=== PATIENT | female | born 1975 | race Caucasian/White ===

== ENCOUNTER 2016-11-21 09:23 | Emergency (ER) | payer MEDICAID ==
[~2016-11-21] VITALS: Ht 162.6 cm; Wt 54.5 kg
[~2016-11-21 09:23] MED LIST: ASPI81TA50 PO; HYDR12.58 PO; METO-448 PO
[2016-11-21 09:32] VITALS: Ht 162.6 cm; Wt 54.5 kg
[2016-11-21] MEDS ORDERED: IBUPROFEN 600 MG TAB PO ONE (11:30)
[2016-11-21 11:34] LABS: BASOPHIL # 0.1 10^3/ul (0.0-0.1); BASOPHILS % 0.9 % (0.0-2.0); EOSINOPHILS # 0.1 10^3/ul (0.0-0.5); EOSINOPHILS % 1.5 % (0.0-7.0); HEMATOCRIT 44.3 % (37.0-47.0); HEMOGLOBIN 14.9 g/dl (12.0-16.0); LYMPHOCYTES # 2.2 10^3/ul (0.8-2.9); LYMPHOCYTES % 33.3 % (15.0-51.0); MEAN CORPUSCULAR HEMOGLOBIN 27.4 pg (29.0-33.0); MEAN CORPUSCULAR HGB CONC 33.6 g/dl (32.0-37.0); MEAN CORPUSCULAR VOLUME 81.4 fl (82.0-101.0); MEAN PLATELET VOLUME 9.9 fl (7.4-10.4); MONOCYTE # 0.6 10^3/ul (0.3-0.9); MONOCYTES % 8.4 % (0.0-11.0); NEUTROPHILS % 55.7 % (39.0-77.0); PLATELET COUNT 285 10^3/UL (140-415); RED BLOOD COUNT 5.44 10^6/ul (4.20-5.40); RED CELL DISTRIBUTION WIDTH 12.9 % (11.5-14.5); WHITE BLOOD COUNT 6.6 10^3/ul (4.8-10.8)
--- NOTE | 2016-11-21 11:44 | RADRPT ---
PROCEDURE: US Lower extremity Venous. CLINICAL INDICATION: Lower extremity pain and swelling TECHNIQUE: Multiple sonographic images of the left lower extremity deep venous system was obtained utilizing grayscale, color-flow, compressive sonography and doppler imaging with augmentation. The images were reviewed on a PACS workstation. COMPARISON: None. FINDINGS: There is normal compressibility and flow within the left common femoral, superficial femoral and pop liteal veins. Antegrade flow seen in the posterior tibial and peroneal veins. IMPRESSION: No sonographic evidence for deep venous thrombosis. RPTAT: AA .Wolfgang Haji MD, MD Date Time Electronically viewed and signed by .Wolfgang Haji MD, MD on 11/21/2016 11:43 .P/
[2016-11-21 12:05] LABS: CALCIUM 9.2 mg/dl (8.4-10.2); CREATININE 0.51 mg/dl (0.44-1.00); POTASSIUM 3.5 mmol/L (3.5-5.1)
--- NOTE | 2016-11-21 12:08 | RADRPT ---
PROCEDURE: Left knee x-ray CLINICAL INDICATION: Knee pain TECHNIQUE: AP, lateral and oblique views of the left knee were obtained. COMPARISON: None FINDINGS: There is normal mineralization. No acute fracture or dislocation is seen. There are no significant degenerative changes. There is a small joint effusion. There is no significant soft tissue swelling. RPTAT: AA IMPRESSION: Small joint effusion. .Tres Saldivar MD, MD Date Time Electronically viewed and signed by .Tres Saldivar MD, on 11/21/2016 12:08 .S/
[2016-11-21] MEDS ORDERED: IBUP-1542 PO (13:12)
--- NOTE | 2016-11-21 14:46 | ERD ---
ER Documentation Chief Complaint Date/Time DATE: 11/21/16 TIME: 14:31 Chief Complaint LEFT KNEE PAIN,SOB STARTED LAST NIGHT.DENIES MED HX HPI 41-year-old female complaining of left knee pain and swelling 2 weeks. Patient stated the pain is worse when she tried to bend her knee. She is able to bear weight. Denies fall or injury. Denies fever or chills. Patient has history of hypertension, but is not currently taking any medication. Denies history of gout. ROS All systems reviewed and are negative except as per history of present illness. Medications Home Meds Active Scripts Ibuprofen* (Motrin*) 600 Mg Tab, 600 MG PO Q6H Y for PAIN AND OR ELEVATED TEMP, #30 TAB Prov:NALLELY MCGUIRE NP 11/21/16 Metoprolol Tartrate* (Lopressor*) 25 Mg Tab, 12.5 MG PO BID for 30 Days, #60 TAB Prov:VANCE OROZCO MD 08/30/15 Reported Medications Hydrochlorothiazide* (Hydrochlorothiazide*) 12.5 Mg Tablet, 12.5 MG PO DAILY, # 30 TAB 08/29/15 Aspirin (Aspir-Low) 81 Mg Tablet.dr, 81 MG PO DAILY 08/29/15 Allergies Allergies: Coded Allergies: No Known Allergy (Unverified , 08/29/15) PMhx/Soc History of Surgery: Yes ( , tubal ligation) Anesthesia Reaction: No Hx Neurological Disorder: No Hx Respiratory Disorders: No Hx Cardiac Disorders: Yes (HTN) Hx Psychiatric Problems: No Hx Miscellaneous Medical Probl: No Hx Alcohol Use: No Hx Substance Use: No Hx Tobacco Use: No Smoking Status: Never smoker Physical Exam Vitals Vital Signs Date Time Temp Pulse Resp B/P Pulse Ox O2 Delivery O2 Flow Rate FiO2 11/21/16 09:32 98.8 86 18 160/83 98 Physical Exam General: Well-developed, well-nourished, conscious and coherent, in no distress. Patient is crying. Skin: Warm and dry without rash, good texture and turgor Head: Normocephalic without evidence of trauma Eyes: Sclera and conjunctivae normal; pupils equal, round, and reactive to light; extraocular movements are intact Chest: Normal AP diameter. Good expansion without retractions. Nontender. Lungs are clear to auscultate bilaterally with good tidal volume Heart: Regular rate and rhythm. No murmur, rub, or gallops heard Extremities: Swelling and tenderness at the medial superior aspect of the left knee, normal passive range of motion. Good strength bilaterally. No clubbing, cyanosis, or erythema. Peripheral pulses are intact. Sensation intact Neuro: Alert and oriented 4, GCS 15. Cranial nerves grossly intact. Motor and sensory exams nonfocal. Moves all extremities. Speech clear. Gait normal Result Diagram: 11/21/16 1124 11/21/16 1124 Results 24 hrs Laboratory Tests Test 11/21/16 11:24 White Blood Count 6.610^3/ul Red Blood Count 5.4410^6/ul Hemoglobin 14.9g/dl Hematocrit 44.3% Mean Corpuscular Volume 81.4fl Mean Corpuscular Hemoglobin 27.4pg Mean Corpuscular Hemoglobin Concent 33.6g/dl Red Cell Distribution Width 12.9% Platelet Count 98491^3/UL Mean Platelet Volume 9.9fl Neutrophils % 55.7% Lymphocytes % 33.3% Monocytes % 8.4% Eosinophils % 1.5% Basophils % 0.9% Nucleated Red Blood Cells % 0.0/100WBC Neutrophils # (Manual) 3.710^3/ul Lymphocytes # 2.210^3/ul Monocytes # 0.610^3/ul Eosinophils # 0.110^3/ul Basophils # 0.110^3/ul Nucleated Red Blood Cells # 0.010^3/ul Sodium Level 141mmol/L Potassium Level 3.5mmol/L Chloride Level 105mmol/L Carbon Dioxide Level 25mmol/L Anion Gap 15 Blood Urea Nitrogen 13mg/dl Creatinine 0.51mg/dl Glucose Level 94mg/dl Calcium Level 9.2mg/dl Current Medications Medications (Trade) Dose Ordered Sig/Melania Route PRN Reason Start Time Stop Time Status Last Admin Dose Admin Ibuprofen (Motrin) 600 mg ONCE ONCE PO 11/21/16 11:30 11/21/16 11:31 DC 11/21/16 11:21 PROCEDURE: Left knee x-ray CLINICAL INDICATION: Knee pain TECHNIQUE: AP, lateral and oblique views of the left knee were obtained. COMPARISON: None FINDINGS: There is normal mineralization. No acute fracture or dislocation is seen. There are no significant degenerative changes. There is a small joint effusion. There is no significant soft tissue swelling. RPTAT: AA IMPRESSION: Small joint effusion. .Tres Saldivar MD, Date Time Electronically viewed and signed by .Tres Saldivar MD, MD on 11/21/2016 12: 08 .S/ CC: NALLELY MCGUIRE [employer] PROCEDURE: US Lower extremity Venous. CLINICAL INDICATION: Lower extremity pain and swelling TECHNIQUE: Multiple sonographic images of the left lower extremity deep venous system was obtained utilizing grayscale, color-flow, compressive sonography and doppler imaging with augmentation. The images were reviewed on a PACS workstation. COMPARISON: None. FINDINGS: There is normal compressibility and flow within the left common femoral, superficial femoral and popliteal veins. Antegrade flow seen in the posterior tibial and peroneal veins. IMPRESSION: No sonographic evidence for deep venous thrombosis. RPTAT: AA .Wolfgang Haji MD, MD Date Time Electronically viewed and signed by .Wolfgang Haji MD, MD on 11/21/2016 11:43 .P/ CC: NALLELY MCGUIRE [employer] Procedures/MDM 41-year-old female present ED was left knee pain 1 week. X-ray of the left knee show a small joint effusion, no acute fracture or dislocation is seen. Left lower extremity Doppler ultrasound was obtained to rule out DVT. No DVT was seen. CBC and BMP are unremarkable. Low suspicion for septic joint. I doubt gout. 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 Patient is given ibuprofen in the ED for pain. Patient reports pain relief after ibuprofen. The area of injury was immobilized with an Alonzo wrap. Patient was noted to be comfortable and neurovascularly intact both before and after the immobilization. Patient appears well, stable for discharge and outpatient management. Patient advised to follow-up with her PCP for orthopedic referral. Medical decision making shared with patient and family. Education provided to patient and family. Patient and family expressed understanding of the plan. Medications on discharge: Ibuprofen. Follow-up: Primary care provider in 2-3 days or return to ED if worse. Disclaimer: Inadvertent spelling and grammatical errors are likely due to EHR/ dictation software use and do not reflect on the overall quality of patient care. Also, please note that the electronic time recorded on this note does not necessarily reflect the actual time of the patient encounter. Departure Diagnosis: Primary Impression: Knee effusion, left Condition: Stable Patient Instructions: Knee Effusion Referrals: [facility] YOU HAVE RECEIVED A MEDICAL SCREENING EXAM AND THE RESULTS INDICATE THAT YOU DO NOT HAVE A CONDITION THAT REQUIRES URGENT TREATMENT IN THE EMERGENCY DEPARTMENT. FURTHER EVALUATION AND TREATMENT OF YOUR CONDITION CAN WAIT UNTIL YOU ARE SEEN IN YOUR DOCTORS OFFICE WITHIN THE NEXT 1-2 DAYS. IT IS YOUR RESPONSIBILITY TO MAKE AN APPOINTMENT FOR FOLOW-UP CARE. IF YOU HAVE A PRIMARY DOCTOR --you should call your primary doctor and schedule an appointment IF YOU DO NOT HAVE A PRIMARY DOCTOR YOU CAN CALL OUR PHYSICIAN REFERRAL HOTLINE AT IF YOU CAN NOT AFFORD TO SEE A PHYSICIAN YOU CAN CHOSE FROM THE FOLLOWING [facility] [address] [facility]. [facility] [address]. [facility] [address] [facility] [facility] [address] [facility]. [facility] [address] [facility]. [facility]. [address] Additional Instructions: Call your primary care doctor TOMORROW for an appointment during the next 2-3 days.See the doctor sooner or return here if your condition worsens before your appointment time. Ask your primary poriver for a referral to clinical lab specialist. NALLELY MCGUIRE NP Nov 21, 2016 14:41
== END 2016-11-21 13:20 | disposition home or self-care (01) ==
LOC: FTE 09:23
DX: M25.462 Effusion, left knee (principal); I10 Essential (primary) hypertension; Z79.82 Long term (current) use of aspirin
CPT/HCPCS: 36415; 73562; 80048; 85025; 93971; Z7502; Z7610

== ENCOUNTER 2017-09-01 10:09 | Emergency (ER) | END 2017-09-01 12:55 | disposition home or self-care (01) ==